=== PATIENT | male | born 1945 | race Caucasian/White ===

== ENCOUNTER → 2016-08-22 | Outpatient (CLI) | payer OTHER ==
--- NOTE | 2016-08-22 13:30 | DX ---
PA and lateral chest History: Atrial fibrillation, assess for pulmonary toxicity of medication. Comparison: None available. Findings: There is mild peribronchial thickening without focal consolidation or definite evidence of interstitial lung disease. There is no pneumothorax or pleural effusion. Heart size is normal. Mild d egenerative change is present in the spine. Impression: Probable mild bronchitis.
== END ==
LOC: BMCIMAGING 12:40
PROVIDERS: ATTEND Internal Medicine Cardiovascular Disease
DX: I48.0 Paroxysmal atrial fibrillation (principal); Z79.899 Other long term (current) drug therapy; R91.8 Other nonspecific abnormal finding of lung field

== ENCOUNTER → 2017-07-26 | Outpatient (CLI) | payer OTHER | LOC: BMCIMAGING 11:30 | PROVIDERS: ATTEND Internal Medicine Cardiovascular Disease | DX: J40 Bronchitis, not specified as acute or chronic (principal); I48.0 Paroxysmal atrial fibrillation ==